=== PATIENT | male | born 1955 | race Caucasian/White ===

== ENCOUNTER 2017-02-03 11:07 | Inpatient (IN) | payer MEDICARE ==
[~2017-02-03] VITALS: Ht 182.9 cm; Wt 103.0 kg
[2017-02-03 12:16] LABS: Basophils # (auto) 0 uL; Eosinophils # (auto) 0.2 uL; Hemoglobin 13.8 g/dL (13.5-17.5); Lymphocytes # (auto) 1.6 uL; Monocytes # (auto) 0.3 uL; Nucleated Red Blood Cells % 0.1 %; White Blood Cell 5.1 10^3/uL (4.4-10.8)
[2017-02-03 12:18] LABS: Basophils % (auto) 0.6 % (0.0-2.0); Eosinophils % (auto) 3.2 % (0.0-7.0); Hematocrit 40.1 % (41.0-53.0); Mean Corpuscular Hemoglobin 34.6 pg (28.0-32.0); Mean Corpuscular Hgb Conc. 34.5 g/dL (32.0-36.0); Mean Corpuscular Volume 100.5 fL (80.0-100.0); Mean Platelet Volume 6.8 fL (6.9-10.8); Monocytes % (auto) 6.7 % (0.0-12.0); Neutrophils # (auto) 2.9 uL; Neutrophils % (auto) 57.5 % (37.0-80.0); Platelet Count (auto) 214 10^3/uL (140-450)
[2017-02-03 12:30] LABS: INR 0.91 (0.9-1.15); Partial Thromboplastin Time 26.4 sec (22.64-33.71); Prothrombin Time 9.9 sec (9.37-12.3)
[2017-02-03 12:40] LABS: Anion Gap 6 (5-15); BUN/Creatinine Ratio 14.3; Blood Urea Nitrogen 20 mg/dL (7-18); Calcium 8.8 mg/dL (8.5-10.1); Carbon Dioxide 22 mmol/L (21-32); Chloride 112 mmol/L (98-107); GFR African American 66 mL/min; GFR Non-African American 54 mL/min; Glucose 141 mg/dL (74-106); Potassium 4.2 mmol/L (3.5-5.1); Sodium 140 mmol/L (136-145)
[2017-02-03 12:44] LABS: B-Type Natriuretic Peptide 24.74 pg/mL (0-100)
[2017-02-03 12:45] LABS: Alkaline Phosphatase 88 U/L (45-117); Aspartate Aminotransferase 40 U/L (15-37); Bilirubin, Total 0.5 mg/dL (0.2-1.0); Total Protein 7.7 g/dL (6.4-8.2)
[2017-02-03] MEDS ORDERED: LEVOFLOXACIN 500MG 100 ML IV ONE (12:45)
[2017-02-03 12:48] LABS: Temperature: 23.5 C (20.0-25.0)
[2017-02-03] MEDS ORDERED: VANCOMYCIN PER PHARMACY 0 MG IV SCH (16:00)
[2017-02-03] MEDS ORDERED: ATENOLOL 25 MG TAB PO ONE (16:00)
[2017-02-03] MEDS ORDERED: cloNIDine HCL 0.1 MG TAB PO PRN (16:00)
[2017-02-03] MEDS ORDERED: DOCUSATE SOD 100 MG CAP PO PRN (16:15)
[2017-02-03] MEDS ORDERED: CYCLOBENZAPRINE HCL 10 MG TAB PO PRN (16:15)
[2017-02-03] MEDS ORDERED: NITROGLYCERIN 0.4 MG SL TAB SL PRN (16:15)
[2017-02-03] MEDS ORDERED: ONDANSETRON HCL 4 MG/2 ML VIAL IV PRN (16:15)
[2017-02-03] MEDS ORDERED: TEMAZEPAM 15 MG CAP PO PRN (16:15)
[2017-02-03] MEDS ORDERED: HYDROcodone-ACET 5/325MG TAB PO PRN ×2 (16:15→16:30)
[2017-02-03] MEDS ORDERED: DEXTROSE (50%) 50ML SYRG IV PRN (16:15)
[2017-02-03] MEDS ORDERED: ACETAMINOPHEN 325 MG TAB PO PRN (16:15)
[2017-02-03] MEDS: BUTORPHANOL TARTRATE 2 MG/1 ML VIAL IV PRN ×3 (16:43→22:40)
[2017-02-03] MEDS: VANCOMYCIN 1GM/250ML 250 ML IV SCH (18:25)
[2017-02-03] MEDS: InsuLIN REG 1unit/0.01ml Soln (100units/ml) SC SCH ×2 (18:32→22:00)
[2017-02-03] MEDS: ACCU-CHEK COMFORT CURVE STRIP VI SCH ×2 (18:32→22:00)
[2017-02-03 20:16] VITALS: BP 166/86
[2017-02-03] MEDS: LOSARTAN POTASSIUM 25 MG TAB PO SCH (21:07)
[2017-02-03] MEDS: ATENOLOL 25 MG TAB PO SCH (22:00)
[2017-02-03] MEDS: ATORVASTATIN 20 MG TAB PO SCH (23:09)
[2017-02-03] MEDS: SODIUM CHLOR 0.9% PF (SALINE LOCK) 10ML VIAL IV SCH (23:10)
[2017-02-04] VITALS (7 sets, daily range): BP systolic 132–166; BP diastolic 72–86
[2017-02-04] MEDS: BUTORPHANOL TARTRATE 2 MG/1 ML VIAL IV PRN ×10 (01:08→22:35)
[2017-02-04] MEDS ORDERED: SIMV-13 PO (02:49)
[2017-02-04] MEDS ORDERED: CYCL1TAB18 PO (02:49)
[2017-02-04] MEDS ORDERED: FLUC200T50 PO (02:49)
[2017-02-04] MEDS ORDERED: POTA10TA51 PO (02:49)
[2017-02-04] MEDS ORDERED: AMLO5TAB2 PO (02:49)
[2017-02-04] MEDS ORDERED: [UNRECOGNIZED DRUG - CODE] IJ (02:49)
[2017-02-04] MEDS ORDERED: LOSA25TA9 PO (02:49)
[2017-02-04] MEDS ORDERED: CLOP75TA28 PO (02:49)
[2017-02-04] MEDS ORDERED: OMEP20TA PO (02:49)
[2017-02-04] MEDS ORDERED: ATEN-60 PO (02:49)
[2017-02-04] MEDS ORDERED: ASPI-231 PO (02:49)
[2017-02-04] MEDS ORDERED: BUTORPHANOL TARTRATE 2 MG/1 ML VIAL ONE (03:25)
[2017-02-04] MEDS: VANCOMYCIN 1GM/250ML 250 ML IV SCH ×2 (06:18→18:07)
[2017-02-04] MEDS: SODIUM CHLOR 0.9% PF (SALINE LOCK) 10ML VIAL IV SCH ×3 (06:21→22:29)
[2017-02-04 06:35] LABS: Basophils # (auto) 0 uL; Basophils % (auto) 0.6 % (0.0-2.0); Eosinophils # (auto) 0.2 uL; Eosinophils % (auto) 3.3 % (0.0-7.0); Hemoglobin 13.6 g/dL (13.5-17.5); Lymphocytes # (auto) 1.5 uL; Mean Corpuscular Hgb Conc. 34.1 g/dL (32.0-36.0); Mean Corpuscular Volume 99.7 fL (80.0-100.0); Mean Platelet Volume 7.2 fL (6.9-10.8); Monocytes # (auto) 0.4 uL; Monocytes % (auto) 7.4 % (0.0-12.0); Neutrophils % (auto) 58.7 % (37.0-80.0); Platelet Count (auto) 201 10^3/uL (140-450); Red Cell Distribution Width 13.9 % (11.8-14.3); White Blood Cell 5.1 10^3/uL (4.4-10.8)
[2017-02-04] MEDS: ACCU-CHEK COMFORT CURVE STRIP VI SCH ×4 (06:50→22:00)
[2017-02-04] MEDS: InsuLIN REG 1unit/0.01ml Soln (100units/ml) SC SCH ×4 (06:50→22:00)
[2017-02-04 07:40] LABS: Albumin 3.4 g/dL (3.4-5.0); BUN/Creatinine Ratio 16.9; Calcium 8.6 mg/dL (8.5-10.1); Potassium 4.2 mmol/L (3.5-5.1)
[2017-02-04 07:43] LABS: Bilirubin, Total 0.6 mg/dL (0.2-1.0); Total Protein 6.6 g/dL (6.4-8.2)
[2017-02-04] MEDS: CLOPIDOGREL BISULFATE 75 MG TAB PO SCH (09:49)
[2017-02-04] MEDS: PANTOPRAZOLE 40 MG TAB PO SCH (09:49)
[2017-02-04] MEDS: FLUCONAZOLE 100 MG TAB PO SCH (09:50)
[2017-02-04] MEDS: LEVOFLOXACIN 500MG 100 ML IV SCH (09:50)
[2017-02-04] MEDS: POTASSIUM CHL 10 Meq TABLET PO SCH (09:50)
[2017-02-04] MEDS: ASPirin-EC 81 mg tab PO SCH (09:50)
[2017-02-04] MEDS: MULTIPLE VITAMIN TAB PO SCH (09:50)
[2017-02-04] MEDS: ATENOLOL 25 MG TAB PO SCH ×2 (10:00→22:00)
[2017-02-04] MEDS: LOSARTAN POTASSIUM 25 MG TAB PO SCH ×2 (10:00→22:32)
[2017-02-04] MEDS: amLODIPine BESYLATE 5 MG TAB PO SCH (10:00)
[2017-02-04] MEDS: ATORVASTATIN 20 MG TAB PO SCH (22:30)
[2017-02-05] MEDS: BUTORPHANOL TARTRATE 2 MG/1 ML VIAL IV PRN ×10 (00:30→23:16)
[2017-02-05 05:00] VITALS: BP 141/79
[2017-02-05 07:00] LABS: Basophils # (auto) 0 uL; Eosinophils # (auto) 0.2 uL; Mean Corpuscular Volume 99.4 fL (80.0-100.0); Monocytes # (auto) 0.4 uL; Nucleated Red Blood Cells % 0.1 %
[2017-02-05] MEDS: ACCU-CHEK COMFORT CURVE STRIP VI SCH ×4 (07:00→22:00)
[2017-02-05] MEDS: InsuLIN REG 1unit/0.01ml Soln (100units/ml) SC SCH ×4 (07:00→22:00)
[2017-02-05 07:04] LABS: Basophils % (auto) 0.6 % (0.0-2.0); Eosinophils % (auto) 2.7 % (0.0-7.0); Hematocrit 40.5 % (41.0-53.0); Hemoglobin 14.2 g/dL (13.5-17.5); Lymphocytes # (auto) 1.8 uL; Lymphocytes % (auto) 29.9 % (10.0-50.0); Mean Corpuscular Hemoglobin 34.8 pg (28.0-32.0); Mean Platelet Volume 7.1 fL (6.9-10.8); Monocytes % (auto) 6.5 % (0.0-12.0); Neutrophils # (auto) 3.6 uL; Neutrophils % (auto) 60.3 % (37.0-80.0); Platelet Count (auto) 211 10^3/uL (140-450); Red Cell Distribution Width 14.1 % (11.8-14.3)
[2017-02-05] MEDS: SODIUM CHLOR 0.9% PF (SALINE LOCK) 10ML VIAL IV SCH ×3 (07:05→22:22)
[2017-02-05 07:46] LABS: Albumin 3.6 g/dL (3.4-5.0); BUN/Creatinine Ratio 16.4; Calcium 8.6 mg/dL (8.5-10.1); Potassium 4.2 mmol/L (3.5-5.1)
[2017-02-05 07:49] LABS: Bilirubin, Total 0.8 mg/dL (0.2-1.0); Total Protein 6.9 g/dL (6.4-8.2)
[2017-02-05 09:00] VITALS: BP 127/80
[2017-02-05] MEDS ORDERED: VANCOMYCIN 1GM/250ML 250 ML IV SCH (09:00)
[2017-02-05] MEDS: amLODIPine BESYLATE 5 MG TAB PO SCH (10:00)
[2017-02-05] MEDS: LOSARTAN POTASSIUM 25 MG TAB PO SCH ×2 (10:00→22:22)
[2017-02-05] MEDS: ATENOLOL 25 MG TAB PO SCH ×2 (10:00→22:21)
[2017-02-05] MEDS: ASPirin-EC 81 mg tab PO SCH (10:24)
[2017-02-05] MEDS: CLOPIDOGREL BISULFATE 75 MG TAB PO SCH (10:24)
[2017-02-05] MEDS: FLUCONAZOLE 100 MG TAB PO SCH (10:24)
[2017-02-05] MEDS: MULTIPLE VITAMIN TAB PO SCH (10:24)
[2017-02-05] MEDS: LEVOFLOXACIN 500MG 100 ML IV SCH (10:24)
[2017-02-05] MEDS: PANTOPRAZOLE 40 MG TAB PO SCH (10:53)
[2017-02-05] MEDS: POTASSIUM CHL 10 Meq TABLET PO SCH (10:53)
[2017-02-05 10:58] LABS: Vitamin B12 611 pg/mL (211-911)
[2017-02-05 11:04] LABS: Temperature: 24.3 C (20.0-25.0)
[2017-02-05 15:00] VITALS: BP 145/76
[2017-02-05 17:00] VITALS: BP 139/83
[2017-02-05] MEDS: VANCOMYCIN 1,250 MG in D5W 5% 250 ML IV SCH (21:17)
[2017-02-05 22:00] VITALS: BP 146/77
[2017-02-05] MEDS: ATORVASTATIN 20 MG TAB PO SCH (22:23)
[2017-02-05] MEDS ORDERED: LORazepam 2MG/ML-1ML VIAL IV PRN (22:30)
[2017-02-06] MEDS: BUTORPHANOL TARTRATE 2 MG/1 ML VIAL IV PRN ×8 (01:37→19:58)
[2017-02-06 05:00] VITALS: BP 119/49
[2017-02-06] MEDS: SODIUM CHLOR 0.9% PF (SALINE LOCK) 10ML VIAL IV SCH ×3 (06:04→21:38)
[2017-02-06] MEDS: ACCU-CHEK COMFORT CURVE STRIP VI SCH ×4 (06:37→22:00)
[2017-02-06] MEDS: InsuLIN REG 1unit/0.01ml Soln (100units/ml) SC SCH ×4 (06:38→21:22)
[2017-02-06 07:16] LABS: Basophils # (auto) 0 uL; Basophils % (auto) 0.5 % (0.0-2.0); Eosinophils # (auto) 0.1 uL; Eosinophils % (auto) 2.7 % (0.0-7.0); Monocytes # (auto) 0.4 uL; Nucleated Red Blood Cells % 0.1 %; Red Cell Distribution Width 13.7 % (11.8-14.3)
[2017-02-06 07:19] LABS: Hematocrit 40.2 % (41.0-53.0); Hemoglobin 13.8 g/dL (13.5-17.5); Lymphocytes % (auto) 36.3 % (10.0-50.0); Mean Corpuscular Hgb Conc. 34.2 g/dL (32.0-36.0); Mean Corpuscular Volume 99.3 fL (80.0-100.0); Mean Platelet Volume 7.3 fL (6.9-10.8); Monocytes % (auto) 7.6 % (0.0-12.0); Neutrophils # (auto) 2.9 uL; Neutrophils % (auto) 52.9 % (37.0-80.0); Platelet Count (auto) 211 10^3/uL (140-450); White Blood Cell 5.5 10^3/uL (4.4-10.8)
[2017-02-06 07:30] VITALS: BP 135/80
[2017-02-06 07:46] LABS: Albumin 3.6 g/dL (3.4-5.0); BUN/Creatinine Ratio 18.1; Bilirubin, Total 0.8 mg/dL (0.2-1.0); Calcium 8.6 mg/dL (8.5-10.1); Potassium 3.7 mmol/L (3.5-5.1); Total Protein 6.9 g/dL (6.4-8.2)
[2017-02-06] MEDS: VANCOMYCIN 1,250 MG in D5W 5% 250 ML IV SCH ×2 (09:12→21:00)
[2017-02-06] MEDS: CLOPIDOGREL BISULFATE 75 MG TAB PO SCH (10:00)
[2017-02-06] MEDS: MULTIPLE VITAMIN TAB PO SCH (10:00)
[2017-02-06] MEDS: FLUCONAZOLE 100 MG TAB PO SCH (10:00)
[2017-02-06] MEDS: ASPirin-EC 81 mg tab PO SCH (10:00)
[2017-02-06] MEDS: PANTOPRAZOLE 40 MG TAB PO SCH (10:00)
[2017-02-06] MEDS: LEVOFLOXACIN 500MG 100 ML IV SCH (10:00)
[2017-02-06] MEDS: POTASSIUM CHL 10 Meq TABLET PO SCH (10:00)
[2017-02-06] MEDS: LOSARTAN POTASSIUM 25 MG TAB PO SCH ×2 (10:01→21:52)
[2017-02-06] MEDS: amLODIPine BESYLATE 5 MG TAB PO SCH (10:02)
[2017-02-06] MEDS: ATENOLOL 25 MG TAB PO SCH ×2 (10:02→22:00)
[2017-02-06 17:01] VITALS: BP 122/53
[2017-02-06] MEDS ORDERED: VANCOMYCIN 1GM/250ML 250 ML IV ONE (21:28)
[2017-02-06] MEDS: ATORVASTATIN 20 MG TAB PO SCH (21:39)
[2017-02-06 22:00] VITALS: BP 138/76
[2017-02-07] MEDS: BUTORPHANOL TARTRATE 2 MG/1 ML VIAL IV PRN ×3 (04:22→11:14)
[2017-02-07 05:00] VITALS: BP 112/59
[2017-02-07] MEDS: SODIUM CHLOR 0.9% PF (SALINE LOCK) 10ML VIAL IV SCH ×2 (06:00→06:37)
[2017-02-07] MEDS: InsuLIN REG 1unit/0.01ml Soln (100units/ml) SC SCH ×2 (06:39→11:14)
[2017-02-07] MEDS: ACCU-CHEK COMFORT CURVE STRIP VI SCH ×2 (06:40→11:14)
[2017-02-07 07:02] LABS: Basophils # (auto) 0 uL; Eosinophils # (auto) 0.2 uL; Hemoglobin 13.7 g/dL (13.5-17.5); Monocytes # (auto) 0.4 uL; Nucleated Red Blood Cells % 0.1 %; White Blood Cell 5.5 10^3/uL (4.4-10.8)
[2017-02-07 07:05] LABS: Basophils % (auto) 0.5 % (0.0-2.0); Eosinophils % (auto) 2.9 % (0.0-7.0); Hematocrit 39.3 % (41.0-53.0); Lymphocytes % (auto) 35.8 % (10.0-50.0); Mean Corpuscular Hemoglobin 34.7 pg (28.0-32.0); Mean Corpuscular Hgb Conc. 34.9 g/dL (32.0-36.0); Mean Corpuscular Volume 99.4 fL (80.0-100.0); Mean Platelet Volume 7.2 fL (6.9-10.8); Monocytes % (auto) 7.8 % (0.0-12.0); Neutrophils # (auto) 2.9 uL; Platelet Count (auto) 207 10^3/uL (140-450); Red Cell Distribution Width 13.5 % (11.8-14.3)
[2017-02-07 07:11] LABS: Potassium 4.1 mmol/L (3.5-5.1)
[2017-02-07 07:18] LABS: Albumin 3.5 g/dL (3.4-5.0); BUN/Creatinine Ratio 17.2; Calcium 8.9 mg/dL (8.5-10.1)
[2017-02-07 07:32] LABS: Bilirubin, Total 0.8 mg/dL (0.2-1.0); Total Protein 6.6 g/dL (6.4-8.2)
[2017-02-07] MEDS: VANCOMYCIN 1,250 MG in D5W 5% 250 ML IV SCH (08:55)
[2017-02-07 09:19] VITALS: BP 116/71
[2017-02-07] MEDS: LEVOFLOXACIN 500MG 100 ML IV SCH (10:00)
[2017-02-07] MEDS: amLODIPine BESYLATE 5 MG TAB PO SCH (10:00)
[2017-02-07] MEDS: CLOPIDOGREL BISULFATE 75 MG TAB PO SCH (10:07)
[2017-02-07] MEDS: MULTIPLE VITAMIN TAB PO SCH (10:07)
[2017-02-07] MEDS: FLUCONAZOLE 100 MG TAB PO SCH (10:07)
[2017-02-07] MEDS: PANTOPRAZOLE 40 MG TAB PO SCH (10:08)
[2017-02-07] MEDS: POTASSIUM CHL 10 Meq TABLET PO SCH (10:08)
[2017-02-07] MEDS: ASPirin-EC 81 mg tab PO SCH (10:08)
[2017-02-07] MEDS: ATENOLOL 25 MG TAB PO SCH (10:11)
[2017-02-07] MEDS: LOSARTAN POTASSIUM 25 MG TAB PO SCH (10:12)
== END 2017-02-07 12:15 | disposition home or self-care (01) | DRG 194 ==
LOC: ER 11:07 → TELE 11:08 → TELE-EAST 20:16
PROVIDERS: ADMIT Internal Medicine; ATTEND Internal Medicine Cardiovascular Disease
DX: J18.1 Lobar pneumonia, unspecified organism (principal); M46.24 Osteomyelitis of vertebra, thoracic region; E11.22 Type 2 diabetes mellitus with diabetic chronic kidney disease; N18.3 Chronic kidney disease, stage 3 (moderate); M46.26 Osteomyelitis of vertebra, lumbar region; D63.8 Anemia in other chronic diseases classified elsewhere; M46.86 Other specified inflammatory spondylopathies, lumbar region; M46.87 Other specified inflammatory spondylopathies, lumbosacral region; I25.10 Atherosclerotic heart disease of native coronary artery without angina pectoris; E78.5 Hyperlipidemia, unspecified; G89.29 Other chronic pain; F17.210 Nicotine dependence, cigarettes, uncomplicated; F41.9 Anxiety disorder, unspecified; I12.9 Hypertensive chronic kidney disease with stage 1 through stage 4 chronic kidney disease, or unspecified chronic kidney disease; Z82.49 Family history of ischemic heart disease and other diseases of the circulatory system; Z95.5 Presence of coronary angioplasty implant and graft; Z83.3 Family history of diabetes mellitus; Z88.6 Allergy status to analgesic agent; Z88.1 Allergy status to other antibiotic agents; Z88.5 Allergy status to narcotic agent
CPT/HCPCS: 36415; 71020; 72128; 72131; 72148; 73200; 80053; 80202; 82607; 82746; 82962; 83036; 83605; 83735; 83880; 84443; 84484; 85025; 85610; 85730; 87040; 93005; 93306; 94761; 96365; 96375; J1956; J7060

== ENCOUNTER → 2017-02-20 | Outpatient (CLI) | payer MEDICARE ==
[~2017-02-20] VITALS: Ht 30.5 cm; Wt 0.5 kg
[~2017-02-20] MED LIST: AMLO5TAB2 PO; ASPI-231 PO; ATEN-60 PO; CLOP75TA28 PO; CYCL1TAB18 PO; FLUC200T50 PO; LOSA25TA9 PO; OMEP20TA PO; POTA10TA51 PO; SIMV-13 PO; VANCOMYCIN 1GM/250ML 250 ML IV ONE; [UNRECOGNIZED DRUG - CODE] IJ
[2017-02-20 16:44] LABS: Albumin 3.8 g/dL (3.4-5.0); BUN/Creatinine Ratio 14.6; Bilirubin, Total 0.4 mg/dL (0.2-1.0); Calcium 8.6 mg/dL (8.5-10.1); Potassium 4.2 mmol/L (3.5-5.1)
[2017-02-20 17:30] VITALS: BP 165/91
== END | disposition home or self-care (01) ==
LOC: Rad HDHVI 15:17
PROVIDERS: ATTEND Internal Medicine Cardiovascular Disease
DX: I10 Essential (primary) hypertension (principal); T85.79XA Infection and inflammatory reaction due to other internal prosthetic devices, implants and grafts, initial encounter; M85.9 Disorder of bone density and structure, unspecified
CPT/HCPCS: 36415; 77078; 80053; 87040; 96365; G0463; J3370

== ENCOUNTER → 2017-02-21 | Outpatient (CLI) | payer MEDICARE ==
[~2017-02-21] MED LIST changes: +VANCOMYCIN 1GM/250ML 250 ML IV SCH; +cefTRIAXone 1GM/50ML D5W 50 ML IV ONE
[2017-02-21 15:25] VITALS: BP 171/87
[2017-02-21 16:30] LABS: Urine Bilirubin Negative (Negative); Urine Blood Negative /uL (Negative); Urine Color Yellow (Yellow); Urine Glucose Normal (Normal); Urine Ketone Negative (Negative); Urine Nitrite Negative (Negative); Urine RBC <1 /hpf (0 - 3); Urine Urobilinogen Normal (Negative)
== END | disposition home or self-care (01) ==
LOC: CHF HDHVI 12:55
PROVIDERS: ATTEND Internal Medicine Cardiovascular Disease
DX: N39.0 Urinary tract infection, site not specified (principal); I10 Essential (primary) hypertension; I25.10 Atherosclerotic heart disease of native coronary artery without angina pectoris
CPT/HCPCS: 81001; 87086; J0696; J3370

== ENCOUNTER → 2017-02-22 | Outpatient (CLI) | payer MEDICARE ==
[~2017-02-22] MED LIST changes: +GENTAMICIN SULF 80 MG/2 ML VIAL ONE; +GENTAMICIN SULFATE 160 MG in D5W 5% 100 ML IV ONE; +GENTAMICIN SULFATE 80 MG in D5W 5% 100 ML IV ONE; -VANCOMYCIN 1GM/250ML 250 ML IV SCH; -cefTRIAXone 1GM/50ML D5W 50 ML IV ONE
[2017-02-22 12:55] VITALS: BP 157/93
[2017-02-22 13:25] VITALS: BP 171/87
== END | disposition home or self-care (01) ==
LOC: CHF HDHVI 12:40
PROVIDERS: ATTEND Internal Medicine Cardiovascular Disease
DX: T84.63XA Infection and inflammatory reaction due to internal fixation device of spine, initial encounter (principal); Y83.8 Other surgical procedures as the cause of abnormal reaction of the patient, or of later complication, without mention of misadventure at the time of the procedure; Y92.89 Other specified places as the place of occurrence of the external cause
CPT/HCPCS: 96365; G0463; J1580; J1642; J3370

== ENCOUNTER 2018-05-20 09:23 | Emergency (ER) | payer MEDICARE ==
[~2018-05-20] VITALS: Ht 182.9 cm; Wt 95.3 kg
[~2018-05-20 09:23] MED LIST changes: +AMLO5TAB13 PO; -AMLO5TAB2 PO; -GENTAMICIN SULF 80 MG/2 ML VIAL ONE; -GENTAMICIN SULFATE 160 MG in D5W 5% 100 ML IV ONE; -GENTAMICIN SULFATE 80 MG in D5W 5% 100 ML IV ONE; +LOSA25TA40 PO; -LOSA25TA9 PO; -VANCOMYCIN 1GM/250ML 250 ML IV ONE
[2018-05-20 09:58] VITALS: BP 177/87
[2018-05-20] MEDS ORDERED: VANCOMYCIN 1GM/250ML 250 ML IV ONE (11:15)
[2018-05-20 12:00] LABS: Albumin 3.5 g/dL (3.4-5.0); Calcium 8.3 mg/dL (8.5-10.1); Potassium 4.3 mmol/L (3.5-5.1)
[2018-05-20 12:03] LABS: BUN/Creatinine Ratio 13.9; Bilirubin, Total 0.4 mg/dL (0.2-1.0); Total Protein 6.9 g/dL (6.4-8.2)
[2018-05-20 12:17] LABS: Basophils # (auto) 0 uL; Basophils % (auto) 0.6 % (0.0-2.0); Eosinophils # (auto) 0.1 uL; Hematocrit 38.8 % (41.0-53.0); Hemoglobin 13.5 g/dL (13.5-17.5); Lymphocytes # (auto) 1.5 uL; Lymphocytes % (auto) 30.1 % (10.0-50.0); Mean Corpuscular Hemoglobin 33.5 pg (28.0-32.0); Mean Corpuscular Hgb Conc. 34.8 g/dL (32.0-36.0); Mean Corpuscular Volume 96.2 fL (80.0-100.0); Monocytes # (auto) 0.3 uL; Monocytes % (auto) 5.4 % (0.0-12.0); Neutrophils % (auto) 60.9 % (37.0-80.0); Nucleated Red Blood Cells % 0.1 %; Platelet Count (auto) 210 10^3/uL (140-450); Red Blood Cells 4.03 10^6/uL (4.5-5.90); Red Cell Distribution Width 13.1 % (11.8-14.3); White Blood Cell 4.9 10^3/uL (4.4-10.8)
[2018-05-20] MEDS ORDERED: diphenhdrAMINE HCL 25 MG CAP PO ONE (12:30)
== END 2018-05-20 15:27 | disposition home or self-care (01) ==
LOC: ER 09:23
DX: M54.9 Dorsalgia, unspecified (principal); G04.91 Myelitis, unspecified; G89.29 Other chronic pain; I25.10 Atherosclerotic heart disease of native coronary artery without angina pectoris; E78.5 Hyperlipidemia, unspecified; I10 Essential (primary) hypertension; F17.210 Nicotine dependence, cigarettes, uncomplicated; Z88.5 Allergy status to narcotic agent; Z88.1 Allergy status to other antibiotic agents; Z79.899 Other long term (current) drug therapy; Z79.82 Long term (current) use of aspirin; Z88.8 Allergy status to other drugs, medicaments and biological substances; Z98.61 Coronary angioplasty status
CPT/HCPCS: 36415; 80053; 85025; 87040; 87077; 87186; 96365; 96366; 99283; J3370

== ENCOUNTER 2018-06-07 10:43 | Emergency (ER) | payer MEDICARE ==
[~2018-06-07] VITALS: Ht 185.4 cm; Wt 97.5 kg
[2018-06-07 10:59] VITALS: BP 191/102
== END 2018-06-07 15:58 | disposition home or self-care (01) ==
LOC: ER 10:43
DX: G89.4 Chronic pain syndrome (principal); E78.5 Hyperlipidemia, unspecified; I25.10 Atherosclerotic heart disease of native coronary artery without angina pectoris; I10 Essential (primary) hypertension; F17.210 Nicotine dependence, cigarettes, uncomplicated; Z88.5 Allergy status to narcotic agent; Z88.1 Allergy status to other antibiotic agents; Z88.0 Allergy status to penicillin; Z88.8 Allergy status to other drugs, medicaments and biological substances; Z79.899 Other long term (current) drug therapy; Z79.82 Long term (current) use of aspirin; Z98.61 Coronary angioplasty status

== ENCOUNTER 2018-06-10 12:49 | Emergency (ER) | payer MEDICARE ==
[~2018-06-10] VITALS: Ht 182.9 cm; Wt 97.5 kg
[2018-06-10 13:48] LABS: Basophils # (auto) 0 uL; Basophils % (auto) 0.7 % (0.0-2.0); Eosinophils # (auto) 0.1 uL; Eosinophils % (auto) 2.3 % (0.0-7.0); Hematocrit 40.3 % (41.0-53.0); Hemoglobin 13.7 g/dL (13.5-17.5); Lymphocytes # (auto) 1.9 uL; Lymphocytes % (auto) 37.7 % (10.0-50.0); Mean Corpuscular Hemoglobin 32.6 pg (28.0-32.0); Mean Corpuscular Volume 95.7 fL (80.0-100.0); Monocytes # (auto) 0.3 uL; Monocytes % (auto) 6.3 % (0.0-12.0); Neutrophils # (auto) 2.6 uL; Nucleated Red Blood Cells % 0.1 %; Platelet Count (auto) 230 10^3/uL (140-450); Red Blood Cells 4.21 10^6/uL (4.5-5.90); White Blood Cell 4.9 10^3/uL (4.4-10.8)
[2018-06-10 13:56] LABS: Albumin 3.7 g/dL (3.4-5.0); BUN/Creatinine Ratio 12.2; Calcium 8.5 mg/dL (8.5-10.1); Potassium 4.4 mmol/L (3.5-5.1)
[2018-06-10 13:59] LABS: Bilirubin, Total 0.5 mg/dL (0.2-1.0); Total Protein 7.3 g/dL (6.4-8.2)
[2018-06-10 16:00] VITALS: BP 183/76
== END 2018-06-10 16:04 | disposition home or self-care (01) ==
LOC: MERGE 13:05 → ER 13:05
DX: R10.84 Generalized abdominal pain (principal); G89.4 Chronic pain syndrome; Z88.0 Allergy status to penicillin; Z88.2 Allergy status to sulfonamides
CPT/HCPCS: 36415; 74176; 80053; 85025

== ENCOUNTER 2019-03-14 10:47 | Emergency (ER) | payer MEDICARE ==
[~2019-03-14] VITALS: Ht 182.9 cm; Wt 102.1 kg
[~2019-03-14 10:47] MED LIST changes: -AMLO5TAB13 PO; +AMLO5TAB15 PO; +LOSA25TA38 PO; -LOSA25TA40 PO
[2019-03-14 12:03] VITALS: BP 175/85
[2019-03-14 13:23] LABS: Basophils # (auto) 0.1 uL; Basophils % (auto) 1.2 % (0.0-2.0); Eosinophils # (auto) 0.3 uL; Eosinophils % (auto) 4.9 % (0.0-7.0); Hematocrit 41.4 % (41.0-53.0); Hemoglobin 14.2 g/dL (13.5-17.5); Lymphocytes # (auto) 1.7 uL; Lymphocytes % (auto) 31.3 % (10.0-50.0); Mean Corpuscular Hemoglobin 33.4 pg (28.0-32.0); Mean Corpuscular Hgb Conc. 34.4 g/dL (32.0-36.0); Mean Corpuscular Volume 97.1 fL (80.0-100.0); Monocytes # (auto) 0.3 uL; Monocytes % (auto) 6.1 % (0.0-12.0); Neutrophils % (auto) 56.5 % (37.0-80.0); Nucleated Red Blood Cells % 0.1 %; Platelet Count (auto) 196 10^3/uL (140-450); Red Blood Cells 4.27 10^6/uL (4.5-5.90); Red Cell Distribution Width 13.9 % (11.8-14.3); White Blood Cell 5.3 10^3/uL (4.4-10.8)
[2019-03-14 13:39] LABS: Albumin 3.8 g/dL (3.4-5.0); Calcium 8.8 mg/dL (8.5-10.1); Potassium 4.3 mmol/L (3.5-5.1)
[2019-03-14 13:48] LABS: Bilirubin, Total 0.5 mg/dL (0.2-1.0)
== END 2019-03-14 16:23 | disposition left against medical advice (07) ==
LOC: ER 10:47
DX: M54.9 Dorsalgia, unspecified (principal); F41.9 Anxiety disorder, unspecified; I25.10 Atherosclerotic heart disease of native coronary artery without angina pectoris; E78.5 Hyperlipidemia, unspecified; I10 Essential (primary) hypertension; F17.210 Nicotine dependence, cigarettes, uncomplicated
CPT/HCPCS: 36415; 80053; 85025

== ENCOUNTER 2019-04-09 11:41 | Emergency (ER) | payer MEDICARE ==
[~2019-04-09] VITALS: Ht 182.9 cm; Wt 104.3 kg
[2019-04-09 12:56] VITALS: BP 177/78
[2019-04-09 13:19] LABS: Basophils # (auto) 0 uL; Basophils % (auto) 0.7 % (0.0-2.0); Eosinophils # (auto) 0.2 uL; Eosinophils % (auto) 4.6 % (0.0-7.0); Hematocrit 39.6 % (41.0-53.0); Hemoglobin 13.9 g/dL (13.5-17.5); Lymphocytes # (auto) 1.7 uL; Mean Corpuscular Hemoglobin 33.7 pg (28.0-32.0); Mean Corpuscular Volume 96.2 fL (80.0-100.0); Monocytes # (auto) 0.3 uL; Monocytes % (auto) 5.2 % (0.0-12.0); Neutrophils # (auto) 2.8 uL; Neutrophils % (auto) 55.5 % (37.0-80.0); Nucleated Red Blood Cells % 0.1 %; Platelet Count (auto) 202 10^3/uL (140-450); Red Blood Cells 4.12 10^6/uL (4.5-5.90); Red Cell Distribution Width 13.5 % (11.8-14.3); White Blood Cell 5.1 10^3/uL (4.4-10.8)
[2019-04-09 13:32] LABS: INR 0.97 (0.9-1.15); Partial Thromboplastin Time 27.9 sec (23.64-32.05)
[2019-04-09 13:36] LABS: Albumin 3.6 g/dL (3.4-5.0); BUN/Creatinine Ratio 9.8; Calcium 8.3 mg/dL (8.5-10.1); Magnesium 1.9 mg/dL (1.6-2.6); Potassium 4.2 mmol/L (3.5-5.1)
[2019-04-09 13:39] LABS: Bilirubin, Total 0.4 mg/dL (0.2-1.0); Total Protein 7.1 g/dL (6.4-8.2)
== END 2019-04-09 14:54 | disposition left against medical advice (07) ==
LOC: ER 11:53
DX: M54.6 Pain in thoracic spine (principal); B99.8 Other infectious disease; E78.5 Hyperlipidemia, unspecified; I10 Essential (primary) hypertension; F17.210 Nicotine dependence, cigarettes, uncomplicated; Z98.61 Coronary angioplasty status; Z88.0 Allergy status to penicillin; Z88.2 Allergy status to sulfonamides; Z88.1 Allergy status to other antibiotic agents; Z79.899 Other long term (current) drug therapy
CPT/HCPCS: 36415; 71045; 72128; 80053; 83605; 83735; 85025; 85610; 85730; 87040